=== PATIENT | female | born 1990 | race African-American/Black ===

== ENCOUNTER → 2020-10-26 | Outpatient (CLI) | payer OTHER ==
[~2020-10-26] MED LIST: DIPH25TA62 PO; FENTANYL CITRATE/PF 50MCG/ML 2ML VIAL ONE; LIDOCAINE HCL/PF 1% 10 MG/ML 5ML VIAL ONE; MIDAZOLAM HCL 2 MG/2 ML VIAL ONE; ONDANSETRON HCL 4MG/2ML INJ ONE; PROPOFOL 200MG/20ML VIAL IV ONE
== END | disposition home or self-care (01) ==
LOC: LAB 13:31
PROVIDERS: ATTEND Obstetrics & Gynecology Obstetrics
DX: Z01.812 Encounter for preprocedural laboratory examination (principal); Z20.822 Contact with and (suspected) exposure to COVID-19
CPT/HCPCS: 87426

== ENCOUNTER → 2020-10-27 | Day surgery (SDC) | payer OTHER ==
[~2020-10-27] VITALS: Ht 166.4 cm; Wt 73.9 kg
[~2020-10-27] MED LIST changes: -FENTANYL CITRATE/PF 50MCG/ML 2ML VIAL ONE; +FERRIC SUBSULFATE SOLN 8GM TOP SCH; +HYDROMORPHONE HCL/PF 2MG/ML CPJ IV PRN; +LACTATED RINGERS 1,000 ML IV SCH; -LIDOCAINE HCL/PF 1% 10 MG/ML 5ML VIAL ONE; +MEPERIDINE HCL/PF 25MG/ML CPJ IV PRN; -MIDAZOLAM HCL 2 MG/2 ML VIAL ONE; +MORPHINE SULFATE 2 MG/ML CPJ (NOT FOR IM USE) IV PRN; +ONDANSETRON HCL 4MG/2ML INJ IV PRN; -ONDANSETRON HCL 4MG/2ML INJ ONE; +PHENAZOPYRIDINE HCL 100MG TABLET PO NR; +POTASSIUM IODIDE/IODINE 20ML TOP SCH; -PROPOFOL 200MG/20ML VIAL IV ONE; +SODIUM CHLORIDE 0.9% 1,000 ML IV ONE; +VASOPRESSIN 20 UNIT/ML 1ML ONE
[2020-10-27 07:46] LABS: CLARITY URINE CLEAR (CLEAR); COLOR URINE YELLOW (YELLOW); KETONES URINE NEGATIVE (NEGATIVE); LEUKOCYTE ESTERASE URINE TRACE (NEGATIVE); NITRITE URINE NEGATIVE (NEGATIVE); OCCULT BLOOD URINE NEGATIVE (NEGATIVE); PROTEIN URINE NEGATIVE (NEGATIVE); SPECIFIC GRAVITY URINE 1.026 (1.005-1.030)
[2020-10-27 07:46] LABS: BASOPHILS % 0.9 % (0.0-2.0); EOSINOPHILS % 1.3 % (0.0-5.0); HEMATOCRIT. 39.4 % (36.0-48.0); HEMOGLOBIN. 12.9 g/dL (12.0-16.0); LYMPHOCYTES % 42.1 % (20.0-50.0); MEAN CORPUSCULAR VOLUME 95.1 fL (81.0-99.0); MEAN PLATELET VOLUME 9.8 fl (7.4-10.4); MONOCYTES % 13.8 % (2.0-8.0); NEUTROPHILS % 41.9 % (40.0-76.0); PLATELET 204 x1000/uL (130-400); RED BLOOD CELL COUNT 4.14 mill/uL (4.2-5.4); RED CELL DISTRIBUTION WIDTH 13.6 % (11.6-14.6)
[2020-10-27 07:49] LABS: UCG SCREEN NEGATIVE
[2020-10-27 10:21] VITALS: BP 121/84
== END | disposition home or self-care (01) ==
LOC: OR 06:48
PROVIDERS: ATTEND Obstetrics & Gynecology Obstetrics
DX: N87.1 Moderate cervical dysplasia (principal); Z79.899 Other long term (current) drug therapy; Z98.890 Other specified postprocedural states; Z82.49 Family history of ischemic heart disease and other diseases of the circulatory system
CPT/HCPCS: 36415; 57522; 81003; 81025; 85025; 88304; 88305; J2175; J2250; J2405; J2704; J3010; J3490